=== PATIENT | female | born 1950 | race Caucasian/White ===

== ENCOUNTER 2016-07-10 15:07 | Observation (INO) | payer OTHER ==
[~2016-07-10] VITALS: Ht 152.4 cm; Wt 75.6 kg
[~2016-07-10 15:07] MED LIST: ADVIL,NUPRIN,M200 MG PO; ASCORBIC ACID500 M3 PO; ATENOLOL25 MG PO; DESYREL 150 MG150 MG PO; DILAUDID2 MG PO; DOCUSATE SODIU100 MG PO; DURAGESIC50 MCG TD; FENOFIBRATE160 M1 PO; FISH OIL300 MG PO; FLUOXETINE HCL20 MG PO; FOLIC ACID1 MG PO; GLUCOPHAGE500 MG PO; HYDROCODON-ACE1 EAC7 PO; LIDODERM 5% P1 PATCH TD; LISINOPRIL10 MG PO; LISINOPRIL5 MG PO; LORAZEPAM0.5 MG PO; LOW DOSE ASPIRI81 M1 PO; LYRICA100 MG PO; LYRICA75 MG PO; MEDROL DOSEPAK4 MG PO; METFORMIN HCL1000 MG PO; METFORMIN HCL500 MG PO; MOTRIN600 MG PO; MOTRIN800 MG PO; NAPROXEN500 MG PO; PERCOCET 5/31 TABLET PO; PREDNISONE20 MG PO; PRINIVIL10 MG PO; PROZAC20 MG PO; PROZAC40 MG PO; SENNA8.6 MG PO; SYNTHROID50 MCG PO; TENORMIN25 MG PO; THERAGRAN1 TABLET PO; TRAZODONE HCL150 MG PO; TRIGLIDE160 MG PO; VALIUM2 MG PO; ZESTRIL10 MG PO
[2016-07-10 15:38] LABS: EOSINOPHIL (%) 4.2 % (0-5); EOSINOPHIL COUNT 0.3 K/uL (0-0.3); HEMATOCRIT 37.7 % (36.0-46.0); IMMATURE GRANULOCYTE (%) 0.1 % (0.0-0.7); IMMATURE GRANULOCYTE COUNT 0.1 K/uL; LYMPHOCYTE COUNT 2.9 K/uL (1.0-2.8); MCV 88.3 FL (83-99); MEAN PLAT.VOLUME 9.1 uM^3 (9.5-12.4); MONOCYTE COUNT 0.6 K/uL (0-0.8); NEUTROPHIL (%) 49.8 % (45-76); NEUTROPHIL COUNT 3.9 K/uL (1.8-6.4); PLATELET COUNT 285 K/uL (156-360); RBC DIS.WIDTH-CV 13.3 % (11.8-14.6); RBC DIS.WIDTH-SD 41.9 % (39-53); RED BLOOD COUNT 4.27 M/uL (3.80-5.20); WHITE BLOOD COUNT 7.8 K/uL (4.1-10.2)
[2016-07-10 15:49] LABS: D-DIMER ELISA 0.35 mg/L FEU (< 0.57)
[2016-07-10 15:51] LABS: CHLORIDE 108 mEq/L (99-109); POTASSIUM 4.2 mEq/L (3.7-5.4); SODIUM 143 mEq/L (136-147)
[2016-07-10 15:53] LABS: GLUCOSE 94 mg/dL (70-99)
[2016-07-10 15:55] LABS: ANION GAP 9 MEQ/L (2-14); TOTAL BILIRUBIN 0.3 mg/dL (0.0-1.0)
[2016-07-10 15:57] LABS: ALKALINE PHOSPHATASE 53 IU/L (3-129); GFR ESTIMATE (CALCULATED) 59 mL/min/
[2016-07-10 15:58] LABS: UREA NITROGEN (BUN) 19 mg/dL (9-23)
[2016-07-10 16:05] LABS: TROP-I INTERPRETATION NEGATIVE; TROPONIN-I < 0.01 ng/mL (0.0-0.30)
[2016-07-10] MEDS ORDERED: METFORMIN HCL500 M1 PO (16:53)
[2016-07-10] MEDS ORDERED: FENOFIBRATE160 M1 PO (16:53)
[2016-07-10] MEDS ORDERED: LEVOTHYROXINE50 MCG PO (16:53)
[2016-07-10] MEDS ORDERED: CYMBALTA30 MG PO (16:54)
[2016-07-10] MEDS ORDERED: LIDOCAINE HCL35 GM TP (16:54)
[2016-07-10] MEDS ORDERED: NAPROSYN-EC 37375 MG PO (16:54)
[2016-07-10 18:10] VITALS: BP 129/74
[2016-07-10 20:00] VITALS: BP 100/57
[2016-07-10 22:15] LABS: TROP-I INTERPRETATION NEGATIVE; TROPONIN-I < 0.01 ng/mL (0.0-0.30)
[2016-07-11 04:51] VITALS: BP 101/55
[2016-07-11 05:31] LABS: HEMATOCRIT 37.9 % (36.0-46.0); MCH 29.6 PG (29.0-34.0); MCHC 32.7 G/DL (30.0-36.0); MCV 90.5 FL (83-99); PLATELET COUNT 279 K/uL (156-360); RBC DIS.WIDTH-CV 13.7 % (11.8-14.6); RBC DIS.WIDTH-SD 45.8 % (39-53); RED BLOOD COUNT 4.19 M/uL (3.80-5.20); WHITE BLOOD COUNT 6.3 K/uL (4.1-10.2)
[2016-07-11 05:55] LABS: ANION GAP 8 MEQ/L (2-14); CHLORIDE 109 MEQ/L (99-109); GFR ESTIMATE (CALCULATED) 53 mL/min/; GLUCOSE 115 mg/dL (70-99); SAMPLE HEMOLYSIS CHECK 0; SAMPLE ICTERIC CHECK 0; SAMPLE LIPEMIA CHECK 0; SODIUM 142 MEQ/L (136-147); UREA NITROGEN (BUN) 25 mg/dL (9-23)
[2016-07-11 05:57] LABS: TROP-I INTERPRETATION NEGATIVE
[2016-07-11 05:59] LABS: TROPONIN-I < 0.01 ng/mL (0.0-0.30)
[2016-07-11 07:35] VITALS: BP 118/65
[2016-07-11] MEDS ORDERED: ASPIR-LOW81 MG PO (12:02)
[2016-07-11] MEDS ORDERED: ATORVASTATIN CA40 MG PO (12:02)
== END 2016-07-11 15:08 | disposition home or self-care (01) ==
LOC: EME 15:07 → EDOF 16:51 → 5WEST 18:02
PROVIDERS: Emergency Medicine; Hospitalist
DX: R07.89 Other chest pain (principal); I67.1 Cerebral aneurysm, nonruptured; I25.10 Atherosclerotic heart disease of native coronary artery without angina pectoris; I10 Essential (primary) hypertension; E78.5 Hyperlipidemia, unspecified; E78.00 Pure hypercholesterolemia, unspecified; K21.9 Gastro-esophageal reflux disease without esophagitis; F41.9 Anxiety disorder, unspecified; F32.9 Major depressive disorder, single episode, unspecified; G43.909 Migraine, unspecified, not intractable, without status migrainosus; Z87.891 Personal history of nicotine dependence
CPT/HCPCS: 71010; 80048; 80053; 84484; 85025; 85027; 85379; 93005; 99281; 99284; G0378; G8978 GP CI; G8979 GP CH; J1644

== ENCOUNTER 2016-12-19 18:40 | Emergency (ER) | payer OTHER ==
[~2016-12-19] VITALS: Ht 152.4 cm; Wt 78.0 kg
[~2016-12-19 18:40] MED LIST changes: +ASPIR-LOW81 MG PO; +ATORVASTATIN CA40 MG PO; +CYMBALTA30 MG PO; +LEVOTHYROXINE50 MCG PO; +LIDOCAINE HCL35 GM TP; +METFORMIN HCL500 M1 PO; +NAPROSYN-EC 37375 MG PO
[2016-12-19 19:33] LABS: EOSINOPHIL (%) 4.9 % (0-5); EOSINOPHIL COUNT 0.3 K/uL (0-0.3); HEMATOCRIT 40.4 % (36.0-46.0); IMMATURE GRANULOCYTE (%) 0.3 % (0.0-0.7); INSTRUMENT ABS NEUTROPHIL CT 3.1 K/uL; LYMPHOCYTE COUNT 2.1 K/uL (1.0-2.8); MCH 29.1 PG (29.0-34.0); MCHC 32.7 G/DL (30.0-36.0); MCV 89.2 FL (83-99); MEAN PLAT.VOLUME 9.3 uM^3 (9.5-12.4); MONOCYTE (%) 8.1 % (3-12); MONOCYTE COUNT 0.5 K/uL (0-0.8); NEUTROPHIL (%) 51.2 % (45-76); NEUTROPHIL COUNT 3.1 K/uL (1.8-6.4); PLATELET COUNT 300 K/uL (156-360); RBC DIS.WIDTH-SD 42.8 % (39-53); RED BLOOD COUNT 4.53 M/uL (3.80-5.20); WHITE BLOOD COUNT 6.1 K/uL (4.1-10.2)
[2016-12-19 19:44] LABS: CHLORIDE 106 mEq/L (99-109); POTASSIUM 4.6 mEq/L (3.7-5.4); SODIUM 139 mEq/L (136-147)
[2016-12-19 19:46] LABS: GLUCOSE 187 mg/dL (70-99)
[2016-12-19 19:47] LABS: ANION GAP 10 MEQ/L (2-14)
[2016-12-19 19:50] LABS: GFR ESTIMATE (CALCULATED) 59 mL/min/
[2016-12-19 19:51] LABS: UREA NITROGEN (BUN) 17 mg/dL (9-23)
[2016-12-19 19:55] LABS: TROP-I INTERPRETATION NEGATIVE; TROPONIN-I < 0.01 ng/mL (0.0-0.30)
[2016-12-19 22:09] VITALS: BP 135/88
== END 2016-12-19 22:11 | disposition home or self-care (01) ==
LOC: EME 18:40
PROVIDERS: Emergency Medicine
DX: S06.0X1A Concussion with loss of consciousness of 30 minutes or less, initial encounter (principal); W01.0XXA Fall on same level from slipping, tripping and stumbling without subsequent striking against object, initial encounter; Y92.002 Bathroom of unspecified non-institutional (private) residence as the place of occurrence of the external cause; E11.9 Type 2 diabetes mellitus without complications; E78.5 Hyperlipidemia, unspecified; K21.9 Gastro-esophageal reflux disease without esophagitis; I25.2 Old myocardial infarction; F41.9 Anxiety disorder, unspecified; F32.9 Major depressive disorder, single episode, unspecified; Z86.73 Personal history of transient ischemic attack (TIA), and cerebral infarction without residual deficits; Z79.84 Long term (current) use of oral hypoglycemic drugs; Z87.891 Personal history of nicotine dependence; Z88.0 Allergy status to penicillin
CPT/HCPCS: 70450; 73501; 73552; 80048; 84484; 85025; 93005; 99281; 99284; J7030

== ENCOUNTER 2017-05-28 20:06 | Emergency (ER) | payer OTHER ==
[~2017-05-28] VITALS: Ht 152.4 cm; Wt 74.8 kg
[2017-05-28 20:47] LABS: HEMATOCRIT 39.7 % (36.0-46.0); HEMOGLOBIN 13.2 G/DL (11.9-15.5); MCH 30.1 PG (29.0-34.0); MCHC 33.2 G/DL (30.0-36.0); MCV 90.6 FL (83-99); PLATELET COUNT 322 K/uL (156-360); RBC DIS.WIDTH-CV 13.3 % (11.8-14.6); RBC DIS.WIDTH-SD 45.1 % (39-53); RED BLOOD COUNT 4.38 M/uL (3.80-5.20); WHITE BLOOD COUNT 6.2 K/uL (4.1-10.2)
[2017-05-28 20:58] LABS: CHLORIDE 108 mEq/L (99-109); POTASSIUM 4.2 mEq/L (3.7-5.4); SODIUM 139 mEq/L (136-147)
[2017-05-28 20:59] LABS: GLUCOSE 120 mg/dL (70-99)
[2017-05-28 21:03] LABS: CREATININE 1.2 mg/dL (0.6-1.3); GFR ESTIMATE (CALCULATED) 48 mL/min/
[2017-05-28 21:04] LABS: UREA NITROGEN (BUN) 21 mg/dL (9-23)
[2017-05-28] MEDS ORDERED: KEFLEX500 MG PO (23:37)
[2017-05-28 23:59] VITALS: BP 122/89
== END 2017-05-29 00:01 | disposition home or self-care (01) ==
LOC: EME 20:06
DX: R04.0 Epistaxis (principal); Z79.02 Long term (current) use of antithrombotics/antiplatelets; E78.5 Hyperlipidemia, unspecified; I25.2 Old myocardial infarction; K21.9 Gastro-esophageal reflux disease without esophagitis; F32.9 Major depressive disorder, single episode, unspecified; F41.9 Anxiety disorder, unspecified; Z86.73 Personal history of transient ischemic attack (TIA), and cerebral infarction without residual deficits; Z88.2 Allergy status to sulfonamides; Z88.0 Allergy status to penicillin; Z88.5 Allergy status to narcotic agent; Z87.891 Personal history of nicotine dependence
CPT/HCPCS: 80048; 85027; 99281; 99284